=== PATIENT | female | born 1990 | race Caucasian/White ===

== ENCOUNTER 2018-07-20 19:38 | Emergency (ER) | payer MEDICAID ==
[~2018-07-20] VITALS: Ht 157.5 cm; Wt 54.4 kg
[2018-07-20 19:42] VITALS: BP_SYST 154
[2018-07-20] MEDS ORDERED: LIDOCAINE 1% 10 MG/ML, 20 ML MDV INJ ONE (20:00)
[2018-07-20] MEDS ORDERED: BACITRACIN 1 GM OINT TP ONE (20:15)
[2018-07-20 20:48] VITALS: BP_SYST 142
== END 2018-07-20 20:48 | disposition home or self-care (01) ==
LOC: SED 19:38
DX: S99.822A Other specified injuries of left foot, initial encounter (principal); X58.XXXA Exposure to other specified factors, initial encounter; Y93.89 Activity, other specified; Y92.89 Other specified places as the place of occurrence of the external cause; Y99.8 Other external cause status
CPT/HCPCS: 11730; 73660; 99284; J2001